=== PATIENT | male | born 1960 | race Caucasian/White ===

== ENCOUNTER 2025-04-21 18:28 | Emergency (ER) | payer BC ==
[~2025-04-21] VITALS: Ht 177.8 cm; Wt 75.0 kg
[2025-04-21 18:36] VITALS: BP 131/88; PULSE 100; RESP 18; TEMP 37.3; O2SAT 100
[2025-04-21 19:15] LABS: DIFFERENTIAL COMMENT 1; HEMATOCRIT. 45.3 % (42.0-52.0); HEMOGLOBIN. 15.4 g/dL (14.0-18.0); MEAN CORPUSCULAR HEMOGLOBIN 31.6 pg (28.0-32.0); MEAN CORPUSCULAR HGB CONC 33.9 g/dL (31.0-37.0); MEAN PLATELET VOLUME 9.1 fl (7.4-10.4); PLATELET 201 x1000/uL (130-400); RED BLOOD CELL COUNT 4.87 mill/uL (4.7-6.1); RED CELL DISTRIBUTION WIDTH 13.5 % (11.6-14.6); WHITE BLOOD COUNT 10.5 x1000/uL (4.5-11.0)
[2025-04-21 19:26] LABS: PLATELET ESTIMATE NORMAL
[2025-04-21 19:29] LABS: CHLORIDE 108 mEq/L (98-107); SODIUM 139 mEq/L (136-145)
[2025-04-21 19:30] LABS: CALCIUM 8.7 mg/dL (8.7-10.4); CARBON DIOXIDE 24 mEq/L (21-32)
[2025-04-21 19:35] LABS: CREATININE 1.1 mg/dL (0.6-1.3); GLUCOSE 141 mg/dL (70-105); UREA NITROGEN BLOOD 14 mg/dL (9-23)
[2025-04-21 19:41] LABS: TROPONIN I HIGH SENSITIVITY < 4 ng/L (3.0-53)
== END 2025-04-21 20:17 | disposition left against medical advice (07) ==
LOC: ER 18:28
DX: R55 Syncope and collapse (principal); I10 Essential (primary) hypertension; M10.9 Gout, unspecified; Z59.48 Other specified lack of adequate food
CPT/HCPCS: 36415; 71045; 80048; 84484; 85025; 93005; 99285